=== PATIENT | female | born 2000 | race Caucasian/White ===

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

== ENCOUNTER 2018-05-06 14:38 | Emergency (ER) | payer OTHER ==
[2018-05-06 15:08] VITALS: BP 145/67
--- NOTE | 2018-05-06 16:49 | UC ---
Ear Complaint HPI - HPI Summary HPI Summary: 18-year-old female presents with 3 day history of left ear pain and left-sided throat pain with swollen lymph node. Denies fever, chills, nasal congestion, runny nose, dysphagia, cough, chest pain, or shortness of breath. - History of Current Complaint Chief Complaint: UCEar Stated Complaint: EAR ACHE Time Seen by Provider: 05/06/18 16:21 Hx Obtained From: Patient Hx Last Menstrual Period: december, on 3 month BC Pain Intensity: 7 - Allergies/Home Medications Allergies/Adverse Reactions: Allergies Allergy/AdvReac Type Severity Reaction Status Date / Time No Known Allergies Allergy Verified 05/06/18 15:08 Home Medications: Home Medications Sertraline* [Zoloft*] 25 mg PO BEDTIME 05/06/18 [History Confirmed 05/06/18] traZODone TAB* [Desyrel TAB*] 50 mg PO BEDTIME 05/06/18 [History Confirmed 05/06] PMH/Surg Hx/FS Hx/Imm Hx Previously Healthy: Yes Psychological History: Depression - Surgical History Surgical History: Yes Surgery Procedure, Year, and Place: tonsilectomy - Family History Known Family History: Positive: Hypertension - Social History Occupation: Employed Full-time Lives: With Family Alcohol Use: Occasionally Substance Use Type: None Smoking Status (MU): Never Smoked Tobacco Have You Smoked in the Last Year: No - Immunization History Vaccination Up to Date: Yes Review of Systems All Other Systems Reviewed And Are Negative: Yes Constitutional: Negative: Fever, Chills Skin: Negative: Rash Eyes: Negative: Drainage, Eye Redness ENT: Positive: Sore Throat, Ear Ache. Negative: Nasal Discharge, Sinus Congestion, Sinus Pain/Tenderness Respiratory: Negative: Shortness Of Breath, Cough Cardiovascular: Negative: Palpitations, Chest Pain Gastrointestinal: Negative: Abdominal Pain, Vomiting, Diarrhea, Nausea Genitourinary: Positive: Negative Musculoskeletal: Positive: Negative Neurological: Positive: Negative Physical Exam - Summary Physical Exam Summary: GENERAL APPEARANCE: Well developed, well nourished, alert and cooperative, and appears to be in no acute distress. EYES: Conjunctiva clear. No drainage. Vision is grossly intact. EARS: External auditory canals and tympanic membranes clear, hearing grossly intact. NOSE: No nasal congestion or discharge. THROAT: Pharyngeal erythema. Tonsils surgically absent. Oral cavity normal.Teeth and gingiva in good general condition. NECK: Neck supple, non-tender. Single tender, swollen anterior cervical lymph node. CARDIAC: Normal S1 and S2. No S3, S4 or murmurs. Rhythm is regular. There is no peripheral edema, cyanosis or pallor. Extremities are warm and well perfused. Capillary refill is less than 2 seconds. LUNGS: Clear to auscultation without rales, rhonchi, wheezing or diminished breath sounds. ABDOMEN: Positive bowel sounds. Soft, nondistended, nontender. No guarding or rebound. No masses or hepatosplenomegally. MUSKULOSKELETAL: ROM intact to all extremities. No joint erythema or tenderness. Normal muscular development. Normal gait. SKIN: Skin normal color, texture and turgor with no lesions or eruptions. Triage Information Reviewed: Yes Vital Signs: Initial Vital Signs Temp 98.4 F 05/06/18 15:02 Pulse 83 05/06/18 15:02 Resp 20 05/06/18 15:02 BP 145/67 05/06/18 15:02 Pulse Ox 100 05/06/18 15:02 Vital Signs Reviewed: Yes Diagnostics - Laboratory Diagnostic Studies Completed/Ordered: Rapid strep negative Ear Complaint Course/Dx - Course Course Of Treatment: 18-year-old female presents with 3 day history of left ear pain and left-sided throat pain with swollen lymph node. Denies fever, chills, nasal congestion, runny nose, dysphagia, cough, chest pain, or shortness of breath. Afebrile. Vital signs stable. Exam revealed a young adult female in no acute distress with normal bilateral TMs, mild pharyngeal erythema, surgically absent tonsils, a single swollen, tender left anterior cervical lymph node, and otherwise unremarkable exam. Rapid strep negative. Recommending symptomatic treatment for a viral pharyngitis. She is to follow- up with primary care provider in 7 days if symptoms do not improve. Destroy guidance and warning symptoms were reviewed with the patient. Verbalizes understanding and agrees with plan of care. - Differential Dx/Diagnosis Differential Diagnosis/HQI/PQRI: Otitis Media, Pharyngitis, URI Provider Diagnosis: Viral pharyngitis Discharge - Sign-Out/Discharge Documenting (check all that apply): Patient Departure All imaging exams completed and their final reports reviewed: No Studies - Discharge Plan Condition: Stable Disposition: HOME Patient Education Materials: Pharyngitis (ED) Referrals: Anjali Torres MD [Primary Care Provider] - 7 Days Additional Instructions: Your rapid strep test in the clinic today was negative. Your symptoms are likely from a viral infection. Viral infections do not respond to antibiotics and are limited to the treatment of symptoms. Viral infections typically run their course in 7-10 days. Drink plenty of fluids to avoid dehydration especially if you are running any fever. Use salt water gargles several times a day. Take over the counter acetaminophen (Tylenol) or ibuprofen (Advil, Motrin) according to directions as needed for pain or fever. You may also use Chloraseptic spray or Cepacol lonzenges according to directions which contain a numbing medication and can provide some temporary relief from your sore throat. Return here or follow up with your primary care provider in 7 days if symptoms persist. Seek immediate medical attention in the emergency room if you have fever greater than 100.5 F despite taking acetaminophen or ibuprofen, are unable to swallow or develop drooling, are unable to open your mouth fully, are unable to eat or drink, have pain that is not relieved with over the counter pain medication, or have any difficulty breathing. - Billing Disposition and Condition Condition: STABLE Disposition: Home
== END 2018-05-06 17:07 | disposition home or self-care (01) ==
LOC: UCEAST 14:38
DX: J02.9 Acute pharyngitis, unspecified (principal); F32.9 Major depressive disorder, single episode, unspecified
CPT/HCPCS: 87651; 99211; G0463